=== PATIENT | male | born 1965 ===

== ENCOUNTER 2025-05-20 19:04 | Emergency (ER) | payer BC, OTHER ==
[2025-05-20] MEDS: Lidocaine 1% with EPINEPHrine 1:100,000 10 ML MDV INJECT ONE (19:17)
== END 2025-05-20 19:32 | disposition home or self-care (01) ==
LOC: MW.ED 19:04
DX: S60.454A Superficial foreign body of right ring finger, initial encounter (principal); W45.8XXA Other foreign body or object entering through skin, initial encounter
CPT/HCPCS: 99282; 99283